=== PATIENT | female | born 1935 ===

== ENCOUNTER 2024-12-01 17:10 | Inpatient (IN) | payer OTHER, MEDICARE ==
[~2024-12-01] VITALS: Ht 157.5 cm; Wt 66.3 kg
[2024-12-01] MEDS ORDERED: ATOR40TA PO (17:37)
[2024-12-01] MEDS ORDERED: AMLO5 PO (17:37)
[2024-12-01] MEDS ORDERED: ASPIR 8181 M1 PO (17:37)
[2024-12-01] MEDS ORDERED: DONE5 PO (17:38)
[2024-12-01] MEDS ORDERED: CITALOPRAM HBR10 MG PO (17:38)
[2024-12-01] MEDS ORDERED: TOPROL XL25 MG PO (17:39)
[2024-12-01] MEDS ORDERED: LISI20 PO (17:39)
[2024-12-01] MEDS ORDERED: FentaNYL Citrate 50 MCG/ML 2 ML Injection IV ONE (17:40)
[2024-12-01] MEDS ORDERED: THERA-D2000 UNIT PO (17:40)
[2024-12-01] MEDS ORDERED: Ketorolac Tromethamine 30mg Vial IV ONE (18:55)
[2024-12-01] MEDS ORDERED: FentaNYL Citrate 50 MCG/ML 2 ML Injection IV PRN (19:50)
[2024-12-01] MEDS ORDERED: NS 1,000 ML IV SCH (19:50)
[2024-12-01] MEDS ORDERED: OxyCODONE 5 mg/Acetamin 325 mg TABLET PO PRN (19:50)
[2024-12-01] MEDS ORDERED: Ondansetron HCl 2 MG / ML 2ML Vial IV PRN (19:50)
[2024-12-01] MEDS ORDERED: Metoclopramide HCl 5MG / ML 2ML Vial IV PRN (19:50)
[2024-12-01 21:22] LABS: Hematocrit 26.2 % (33.0-51.0); Hemoglobin 9.4 g/dL (11.5-16.0); Mean Corpuscular HGB Conc 35.9 g/dL (31.5-36.5); Mean Corpuscular Volume 94 fL (80-100); NRBC ABSOLUTE 0.00 K/mm3 (0.00-0.02); NRBC Auto 0.0 /100 WBC (0.0-0.2); Platelet Count 159 K/mm3 (150-400); RDW Coefficient Variation 13.7 % (11.7-14.2); RDW Standard Deviation 47.4 fL (35.1-46.3)
[2024-12-01 21:29] LABS: Anion Gap 9.0 mmol/L (3-11); Blood Urea Nitrogen 19.0 mg/dL (8-24); CO2, Blood 26.0 mmol/L (21-32); Calcium, Blood 8.5 mg/dL (8.5-10.1); Chloride, Blood 92.0 mmol/L (98-108); Creatinine, Blood 1.02 mg/dL (0.40-1.00); Glucose, Blood 106.0 mg/dL (70-99); Potassium, Blood 4.1 mmol/L (3.5-5.5); Sodium, Blood 123.0 mmol/L (136-145)
[2024-12-01 22:59] VITALS: BP 171/55
--- NOTE | 2024-12-02 07:28 | NUR ---
PT NPO, IVF INFUSING. NEW IV PLACED AND STILL THERE. BELGICA GRIFFIN RN WAS IN WITH PT AND SAID SHE VOIDED. CAUGHT PT TRYING TO GET OUT OF BED. PT WANTING TO GO TO THE BR. THERMOSCREW OPERATOR HELPING HER WITH BP. REPORT TO DALIA BURNS TO ASSUME CARE.
[2024-12-02 08:31] LABS: BASOPHILS ABSOLUTE AUTO 0.05 K/mm3 (0.00-0.23); BASOPHILS PERCENT AUTO 0 % (0-2); EOSINOPHILS ABSOLUTE AUTO 0.28 K/mm3 (0.00-0.68); EOSINOPHILS PERCENT AUTO 2 % (0-6); Hematocrit 26.7 % (33.0-51.0); Hemoglobin 9.4 g/dL (11.5-16.0); IMMATURE GRAN ABSOLUTE AUTO 0.04 K/mm3 (0.00-0.10); IMMATURE GRAN PERCENT AUTO 0 % (0-1); LYMPHOCYTES ABSOLUTE AUTO 1.03 K/mm3 (0.84-5.20); LYMPHOCYTES PERCENT AUTO 7 % (21-46); MONOCYTES ABSOLUTE AUTO 0.44 K/mm3 (0.16-1.47); MONOCYTES PERCENT AUTO 3 % (4-13); Mean Corpuscular HGB Conc 35.2 g/dL (31.5-36.5); Mean Corpuscular Volume 96 fL (80-100); NEUTROPHILS ABSOLUTE AUTO 12.72 K/mm3 (1.96-9.15); NEUTROPHILS PERCENT AUTO 87 % (41-73); NRBC ABSOLUTE 0.00 K/mm3 (0.00-0.02); NRBC Auto 0.0 /100 WBC (0.0-0.2); Platelet Count 147 K/mm3 (150-400); RDW Coefficient Variation 14.0 % (11.7-14.2); RDW Standard Deviation 48.6 fL (35.1-46.3)
[2024-12-02 08:40] VITALS: BP 189/51
[2024-12-02 08:47] LABS: Anion Gap 12.0 mmol/L (3-11); Blood Urea Nitrogen 20.0 mg/dL (8-24); CO2, Blood 23.0 mmol/L (21-32); Calcium, Blood 8.4 mg/dL (8.5-10.1); Chloride, Blood 92.0 mmol/L (98-108); Creatinine, Blood 1.03 mg/dL (0.40-1.00); Glucose, Blood 113.0 mg/dL (70-99); Potassium, Blood 4.1 mmol/L (3.5-5.5); Sodium, Blood 123.0 mmol/L (136-145)
[2024-12-02] MEDS ORDERED: Cholecalciferol 1000 Unit Tablet (=25MCG) PO SCH (09:00)
[2024-12-02] MEDS ORDERED: Morphine Sulfate 4 MG/1 ML Injection IV PRN (10:10)
[2024-12-02 12:13] LABS: Anion Gap 9.0 mmol/L (3-11); Blood Urea Nitrogen 19.0 mg/dL (8-24); CO2, Blood 27.0 mmol/L (21-32); Calcium, Blood 8.3 mg/dL (8.5-10.1); Chloride, Blood 93.0 mmol/L (98-108); Creatinine, Blood 1.03 mg/dL (0.40-1.00); Glucose, Blood 114.0 mg/dL (70-99); Potassium, Blood 4.1 mmol/L (3.5-5.5); Sodium, Blood 125.0 mmol/L (136-145)
[2024-12-02 16:18] LABS: Anion Gap 7.0 mmol/L (3-11); Blood Urea Nitrogen 17.0 mg/dL (8-24); CO2, Blood 27.0 mmol/L (21-32); Calcium, Blood 8.2 mg/dL (8.5-10.1); Chloride, Blood 95.0 mmol/L (98-108); Creatinine, Blood 1.01 mg/dL (0.40-1.00); Glucose, Blood 114.0 mg/dL (70-99); Potassium, Blood 4.2 mmol/L (3.5-5.5); Sodium, Blood 125.0 mmol/L (136-145)
[2024-12-02 16:24] VITALS: BP 164/61
[2024-12-02 18:07] VITALS: BP 160/55
[2024-12-02] MEDS ORDERED: Tranexamic Acid 100 ML IV SCH (18:30)
[2024-12-02] MEDS ORDERED: CeFAZolin Sodium 2,000 MG in NS 100 ML IV SCH (18:30)
[2024-12-03] VITALS (26 sets, daily range): BP systolic 143–204; BP diastolic 45–96
[2024-12-03 05:35] LABS: BASOPHILS ABSOLUTE AUTO 0.04 K/mm3 (0.00-0.23); BASOPHILS PERCENT AUTO 1 % (0-2); EOSINOPHILS ABSOLUTE AUTO 0.36 K/mm3 (0.00-0.68); EOSINOPHILS PERCENT AUTO 5 % (0-6); Hematocrit 24.9 % (33.0-51.0); Hemoglobin 8.6 g/dL (11.5-16.0); IMMATURE GRAN ABSOLUTE AUTO 0.02 K/mm3 (0.00-0.10); IMMATURE GRAN PERCENT AUTO 0 % (0-1); LYMPHOCYTES ABSOLUTE AUTO 0.72 K/mm3 (0.84-5.20); LYMPHOCYTES PERCENT AUTO 9 % (21-46); MONOCYTES ABSOLUTE AUTO 0.40 K/mm3 (0.16-1.47); MONOCYTES PERCENT AUTO 5 % (4-13); Mean Corpuscular HGB Conc 34.5 g/dL (31.5-36.5); Mean Corpuscular Volume 95 fL (80-100); NEUTROPHILS ABSOLUTE AUTO 6.45 K/mm3 (1.96-9.15); NEUTROPHILS PERCENT AUTO 81 % (41-73); NRBC ABSOLUTE 0.00 K/mm3 (0.00-0.02); NRBC Auto 0.0 /100 WBC (0.0-0.2); Platelet Count 122 K/mm3 (150-400); RDW Coefficient Variation 14.4 % (11.7-14.2); RDW Standard Deviation 50.1 fL (35.1-46.3)
[2024-12-03 06:04] LABS: Ferritin, Serum 167.0 ng/mL (8-252); Total Iron Binding Capacity 212.0 ug/dL (250-450)
[2024-12-03 06:05] LABS: Anion Gap 8.0 mmol/L (3-11); Blood Urea Nitrogen 18.0 mg/dL (8-24); CO2, Blood 24.0 mmol/L (21-32); Calcium, Blood 8.0 mg/dL (8.5-10.1); Chloride, Blood 98.0 mmol/L (98-108); Creatinine, Blood 1.05 mg/dL (0.40-1.00); Glucose, Blood 94.0 mg/dL (70-99); Potassium, Blood 4.1 mmol/L (3.5-5.5); Sodium, Blood 126.0 mmol/L (136-145)
--- NOTE | 2024-12-03 06:35 | NUR ---
SHIFT SUMMARY AOX1-SELF & FAMILY ONLY. HX DEMENTIA. HAS TANGETABLE OFF TOPIC SPEECH OR RESPONSES. REPORTS PAIN VIA GRIMACING, SAYING "OW", & HOLDING L HIP. MEDICATED 2x W/1MG IV MORPHINE & PT ABLE TO REST COMFORTABLY. LLE SHORTENED. STRONG PULSE, CAP REFILL <3 SEC. HAS BEEN NPO SINCE 0000 FOR PLANNED ARHTROPLASTY TODAY. BP HAS BEEN HTN, PT REPORTING PAIN WHEN BP TAKEN-WILL REASSESS. CALL LIGHT, BED ALARM IN PLACE & 1:1 SITTER AT BEDSIDE.
[2024-12-03] MEDS ORDERED: Bupivacaine 0.5% W/EPI 1:200000 SDV 30 ML Vial ONE (07:10)
[2024-12-03] MEDS ORDERED: Ketamine HCl 100 MG / ML 5ML Vial ONE (07:20)
[2024-12-03] MEDS ORDERED: FentaNYL Citrate 50 MCG/ML 2 ML Injection ONE (07:20)
[2024-12-03] MEDS ORDERED: Bupivacaine 0.5% HCl 5 MG/ML 30MLVIAL ONE (07:20)
--- NOTE | 2024-12-03 07:25 | NUR ---
pt to or via bed
[2024-12-03] MEDS ORDERED: Ondansetron HCl 2 MG / ML 2ML Vial ONE (08:25)
[2024-12-03] MEDS ORDERED: Dexamethasone Sod Phos 10 MG/ML 1ML VIAL ONE (08:25)
[2024-12-03] MEDS ORDERED: Labetalol HCL 5 MG/ML 4ML Injection (Single Dose) ONE (09:54)
[2024-12-03] MEDS ORDERED: FentaNYL Citrate 50 MCG/ML 2 ML Injection IV PRN ×2 (09:55→10:00)
[2024-12-03] MEDS ORDERED: Dexamethasone Sodium Phosphate 4 MG/ML 5ML VIAL IV PRN (09:55)
[2024-12-03] MEDS ORDERED: Labetalol HCL 5 MG/ML 4ML Injection (Single Dose) IV PRN (09:55)
[2024-12-03] MEDS ORDERED: Ondansetron HCl 2 MG / ML 2ML Vial IV PRN (09:55)
[2024-12-03] MEDS ORDERED: HydrALAZINE HCl 20 MG / ML 1ML Vial IV PRN (10:00)
--- NOTE | 2024-12-03 11:00 | NUR ---
PT TO ROOM 211 FROM PACU. R AC IV BLOODY AND OCCLUDED ON ARRIVAL. DC'D. PT SLEEPY BUT AROUSABLE. AQUACELL DRESSING TO LEFT HIP WITH MILD SEROSANGUINOUS SPOTTING. WILL CONTINUE TO MONITOR. POST OP VS STARTED AND STABLE. PULSES PALPABLE DISTALLY.
[2024-12-03 14:22] LABS: Hematocrit 26.0 % (33.0-51.0); Hemoglobin 8.8 g/dL (11.5-16.0)
[2024-12-03] MEDS ORDERED: CeFAZolin Sodium 2,000 MG in NS 100 ML IV SCH (16:00)
--- NOTE | 2024-12-03 17:42 | NUR ---
SHIFT SUMMARY PT EATING MEAL TRAY. IV INFUSING LEFT ARM. PT REMAINS ORIENTED TO SELF ONLY. SITTER AT BEDSIDE. FAMILY AT BEDSIDE. PT PRESENTLY SITTING UP IN CHAIR.
[2024-12-04 03:49] VITALS: BP 150/43
--- NOTE | 2024-12-04 04:24 | NUR ---
NOC SUMMARY- PT HAS HAD DIFFICULTY SLEEPING. TRAZEDONE WAS ORDERED WITH LITTLE RESULT. PT PAIN MANAGED WELL. PT DRESSING HAS SOME SHADOWING. PT VOIDING VIA COMMODE. PT HAS A SITTER. PT REMAINS VERY CONFUSED. CALL LIGHT IN REACH.
[2024-12-04 07:04] VITALS: BP 156/53
[2024-12-04] MEDS ORDERED: Enoxaparin 30 MG/0.3 ML SYR SC SCH (08:00)
[2024-12-04 08:57] LABS: Hematocrit 21.8 % (33.0-51.0); Hemoglobin 7.7 g/dL (11.5-16.0)
--- NOTE | 2024-12-04 09:02 | NUR ---
phys therapy in to see pt family bedside.
[2024-12-04 09:18] LABS: Anion Gap 9.0 mmol/L (3-11); Blood Urea Nitrogen 20.0 mg/dL (8-24); CO2, Blood 24.0 mmol/L (21-32); Calcium, Blood 8.0 mg/dL (8.5-10.1); Chloride, Blood 101.0 mmol/L (98-108); Creatinine, Blood 1.07 mg/dL (0.40-1.00); Glucose, Blood 119.0 mg/dL (70-99); Potassium, Blood 3.8 mmol/L (3.5-5.5); Sodium, Blood 130.0 mmol/L (136-145)
--- NOTE | 2024-12-04 11:52 | NUR ---
Upon receiving a referral for spiritual care, I visited the patient. Her son Capo is bedside. The patient asks the same questions over and over and so finding out about her is challenging. I answer her questions for quite some time but step out to allow her to rest. I provided therapeutic listening and a calming joyful presence which appeared to have a positive result with the patient.
[2024-12-04 15:20] VITALS: BP 163/108
--- NOTE | 2024-12-04 17:24 | NUR ---
SUMMARY PT HAS NOT SLEPT T/O SHIFT. BECAME VERY AGITATED THIS AFTERNOON, FAMILY BEDSIDE AND REQUESTED XANAX, STATING PT TAKES AT HOME. MEDICATED PER ORDERS. PT STILL AWAKE. FAMILY BEDSIDE. DR GARCIA IN TO SEE PT/FAMILY.
[2024-12-04 21:01] VITALS: BP 116/39
[2024-12-04 21:08] VITALS: BP 115/41
--- NOTE | 2024-12-04 21:12 | NUR ---
TRANSFER OF CARE REPORT GIVEN TO MARÍA BURNS. PT ASLEEP c CONT BIOX IN USE. SITTER AT BEDSIDE. IV FLUIDS INFUSING PER EMAR. AQUACEL c SCANT SHADOWING. BED ALARM IN USE.
--- NOTE | 2024-12-04 21:35 | NUR ---
ASSUMED CARE OF PT FROM [facility] AT THIS TIME.
[2024-12-04 23:43] VITALS: BP 116/56
[2024-12-05] VITALS (8 sets, daily range): BP systolic 120–160; BP diastolic 39–91
--- NOTE | 2024-12-05 00:16 | NUR ---
12/04/24 2330 RN AND DEVELOPMENT CONSULTANT TO ROOM TO REASSESS PT BP/LOC. PT ABLE TO AROUSE TO TOUCH STIMULI BUT IS VERY SLEEPY. 1:1 SITTER AT BEDSIDE FOR SAFETY.
--- NOTE | 2024-12-05 03:22 | NUR ---
0250 CALL FROM SITTER FOR RESTROOM BREAK. RN IN ROOM DURING SITTER BREAK; PT WITH CHANGES TO RESPIRATIONS SINCE ASSESSMENT; CONTINUOUS BIOX IN PLACE AND OXYGEN SATURATIONS REMAIN ABOVE 95% HOWEVER RESPIRATIONS DECREASED AND WHEEZE PRESENT WITH SNORING RESPIRATIONS. PT RESPONDS TO PAINFUL STIMULI BUT WILL NOT OPEN EYES OR SPEAK. PT LEFT HAND IS SOMEWHAT CONTRACTED AND PER PHLEBOTOMY LAB ASSISTANT, THIS WAS NOT PT BASELINE YESTERDAY NOC SHIFT. BED WAS CHANGED DUE TO INCONTINENT STOOL AND URINE EPISODE AND DURING THE LINEN CHANGE, PT DID NOT VERBALIZE WORDS BUT DID MAKE NOISE AND TIGHTENED HAND BLANKBOOK FORWARDER AROUND RN HANDS WHEN RN WAS MOVING PT ARM. PT CONTINUES TO NOT SPEAK TO US WHEN ASKING QUESTIONS. PT IS HARD OF HEARING AT BASELINE. PHLEBOTOMY LAB ASSISTANT AND THIS RN ATTEMPTED TO OPEN PT EYES AND PT SQUEEZES THEM CLOSED AND WILL NOT ALLOW US TO OPEN THEM, NOR DOES SHE OPEN THEM TO US. CALL PLACED TO HOSPITALIST AND ORDERS GIVEN FOR [facility].
[2024-12-05 04:30] LABS: pH Blood Venous 7.36 (7.34-7.37)
[2024-12-05 04:31] LABS: Hematocrit 19.2 % (33.0-51.0); Hemoglobin 6.4 g/dL (11.5-16.0)
--- NOTE | 2024-12-05 05:08 | NUR ---
0504 CALL TO PROVIDER WHEN LAB RESULTS AVAILABLE. ORDERS RECEIVED FOR 1 UNIT PRBC ONE TIME.
[2024-12-05] MEDS ORDERED: NS 500 ML IV SCH (05:10)
--- NOTE | 2024-12-05 07:20 | NUR ---
CALL PLACED TO PT DAUGHTER YASMEEN TO DISCUSS STATUS LETHARGY AND DECREASED HEMOGLOBIN WITH NEED FOR BLOOD TRANSFUSION. DAUGHTER APPRECIATIVE OF PHONE CALL AND UPDATE.
[2024-12-05] MEDS ORDERED: Enoxaparin 40 MG/0.4 ML SYR SC SCH (09:00)
--- NOTE | 2024-12-05 09:46 | NUR ---
Pt. is somnolent and not responsive. Family are present and welcome my visit. Facilitate a life review and established a measure of rapport based upon common life experience in [place]. SonCapo is engaging as is Pts. daja Negrete. Consider matters of deni and belief and educated the family on the process for calling a department coordinator. Family verbalized interest in when Mass services take place at the hospital. Prayed with the family. Family verbalized gratitude for the spiritual care visit, and welcomed this quill worker to return.
[2024-12-05 12:30] LABS: Anion Gap 17.0 mmol/L (3-11); Blood Urea Nitrogen 32.0 mg/dL (8-24); CO2, Blood 20.0 mmol/L (21-32); Calcium, Blood 8.2 mg/dL (8.5-10.1); Chloride, Blood 103.0 mmol/L (98-108); Creatinine, Blood 1.36 mg/dL (0.40-1.00); Glucose, Blood 101.0 mg/dL (70-99); Potassium, Blood 4.5 mmol/L (3.5-5.5); Sodium, Blood 135.0 mmol/L (136-145)
[2024-12-05 13:42] LABS: Hematocrit 23.8 % (33.0-51.0); Hemoglobin 7.9 g/dL (11.5-16.0)
[2024-12-05 13:57] LABS: Source, Urine Straight Cath
[2024-12-05 14:01] LABS: Bilirubin, Urine Neg (Neg); Color, Urine Yellow (P-Yellow); Glucose Qualitative, Urine Neg (Neg); Ketones, Urine Neg (Neg); Leukocyte Esterase, Urine Neg (Neg); Protein, Urine 3+ (Neg); Specific Gravity, Urine 1.020 (1.003-1.022); Urobilinogen, Urine NORM (Normal)
--- NOTE | 2024-12-05 17:10 | NUR ---
SUMMARY PT HAS BEEN SOMNOLENT T/O MOST OF SHIFT. OPENED EYES BRIEFLY THIS AM AND SUPERVISOR RECEIVING AND PROCESSING REPORTED OPENED EYES BRIEFLY THIS AFTERNOON WITH VS. OTHERWISE HAS SLEPT MOST OF DAY, NOT RESPONDED. PT NEEDED TO BE STRAIGHT CATH'D THIS AFTERNOON DUE TO BS OF 361. PT WAS VERY STIFF, TRYING TO COVER SELF AND HOLD LEGS TOGETHER, WHILE REPEATEDLY SAYING "POR FAVOR" WHILE CATH WAS PERFORMED. CATH EMPTIED BLADDER OF 400 ML DARK YELLOW URINE. UA SENT. PT'S HGB THIS AM WAS 6.4. REC'D 1 UNIT PRBCS, TOLERATED WELL. HGB POST TRANSFUSION WAS 7.9. FAMILY HAS BEEN BEDSIDE T/O DAY. REPOSITIONED T/O DAY. CALL LIGHT IN REACH. BED ALARM ON FOR SAFETY.
[2024-12-06 04:35] VITALS: BP 187/53
[2024-12-06 05:33] LABS: Hematocrit 22.6 % (33.0-51.0); Hemoglobin 7.6 g/dL (11.5-16.0)
--- NOTE | 2024-12-06 05:37 | NUR ---
PT WOKE UP DURING SHIFT CHANGE. CONT TO BE CONFUSED BUT COOPERATIVE WITH CARE. BLACK TOP ROLLER AND ANOTHER RN GOT PT UP TO BSC AND PT VOIDED. IT WAS MAX 2 PERSON ASSIST TO GET HER UP. PT DENIES PAIN OR NEED OF PAIN MEDICATION. DRSG WITH SMALL AMT OLD DRAINAGE UNDER TAPE. MEDICATED PER EMAR. IVF INFUSING T/O NOC. SITE CLEAR. PT RESTED WELL T/O NOC. NO ACUTE CHANGES. WILL GIVE REPORT TO RN TAKING PT.
[2024-12-06 06:16] LABS: Anion Gap 7.0 mmol/L (3-11); Blood Urea Nitrogen 25.0 mg/dL (8-24); CO2, Blood 23.0 mmol/L (21-32); Calcium, Blood 8.0 mg/dL (8.5-10.1); Chloride, Blood 108.0 mmol/L (98-108); Creatinine, Blood 1.11 mg/dL (0.40-1.00); Glucose, Blood 77.0 mg/dL (70-99); Potassium, Blood 4.2 mmol/L (3.5-5.5); Sodium, Blood 134.0 mmol/L (136-145)
[2024-12-06 07:58] VITALS: BP 160/87
[2024-12-06] MEDS ORDERED: Enoxaparin 40 MG/0.4 ML SYR SC SCH (09:00)
[2024-12-06] MEDS ORDERED: Enoxaparin 30 MG/0.3 ML SYR SC SCH (09:00)
[2024-12-06 14:21] VITALS: BP 170/51
--- NOTE | 2024-12-06 16:32 | NUR ---
SHIFT SUMMARY PATIENT IS AOX2. ABLE TO AMBULATE TO CHAIR AND BSC, WITH 2 PERSON ASSIST. BED AND CHAIR ALARMS IN PLACE. AQUACEL TO LEFT HIP HAS SOME S/S DRNG. DRESSING IS INTACT. PATIENT UP IN CHAIR T/O DAY WITH FAMILY IN ROOM. PARTICIPATES IN PT AND OT. VOIDING, BM AND TOLERATING PO INTAKE. DENIES PAIN.
--- NOTE | 2024-12-06 18:01 | NUR ---
UPDATE PATIENT HAVING MORE CONFUSION THIS EVENING. NOT ABLE TO REDIRECT PATIENT. PATIENT INSISTS ON GETTING UP AND OUT OF THE ROOM TO GO HOME. FAMILY AT BEDSIDE TRYING TO REDIRECT. PATIENT USES BSC VOIDS AND IS NOW IN CHAIR TO EAT DINNER. CHAIR ALARM IS ON.
[2024-12-06 19:51] VITALS: BP 176/55
--- NOTE | 2024-12-06 22:09 | NUR ---
PT'S DAUGHTER CALLED TO CHECK ON HER. I LET HER KNOW THAT WE HAVE A SITTER THAT CAME IN TO SIT WITH HER. PT TOOK HER MEDICATIONS WHOLE WITH WATER.
[2024-12-07 04:44] VITALS: BP 192/60
[2024-12-07 04:57] LABS: Anion Gap 7.0 mmol/L (3-11); Blood Urea Nitrogen 25.0 mg/dL (8-24); CO2, Blood 25.0 mmol/L (21-32); Calcium, Blood 8.2 mg/dL (8.5-10.1); Chloride, Blood 108.0 mmol/L (98-108); Creatinine, Blood 1.13 mg/dL (0.40-1.00); Glucose, Blood 121.0 mg/dL (70-99); Potassium, Blood 3.7 mmol/L (3.5-5.5); Sodium, Blood 136.0 mmol/L (136-145)
[2024-12-07 05:14] VITALS: BP 179/52
[2024-12-07 07:15] LABS: Hematocrit 25.8 % (33.0-51.0); Hemoglobin 8.8 g/dL (11.5-16.0)
[2024-12-07 07:22] VITALS: BP 176/53
[2024-12-07 07:23] VITALS: BP 180/54
[2024-12-07 10:30] VITALS: BP 165/44
[2024-12-07] MEDS ORDERED: ALPR.25 PO (14:04)
[2024-12-07] MEDS ORDERED: FERSU300 PO (14:05)
[2024-12-07] MEDS ORDERED: QUET25 PO (14:06)
[2024-12-07 14:13] VITALS: BP 154/50
--- NOTE | 2024-12-07 14:40 | NUR ---
Spiritual Care Visit. Pt. is sitting up and resting in a recliner. Family are at bedside and welcome my visit. During the visit the Pt. awakened. Pt. displayed some confusion but is overall very pleasant. Facilitated life review and considered the joys and challengines of aging parents. Prayed with the Pt. Shashiy verbalized gratitude for the spiritual care visit as well as their expectation for a discharge home for the Pt. soon.
--- NOTE | 2024-12-07 16:06 | NUR ---
DISCHARGE POD 4 L MARLON HIP PT WORKED WELL WITH THERAPY. DRESSING REMAINED CDI. NO PAIN DURING SHIFT. ALL INSTRUCTIONS GONE OVER WITH FAMILY AT BEDSIDE. ALL EQUIPMENT DELIVERED PRIOR TO DISCHARGE. PRESCRIPTIONS SENT TO [facility]. ESCORTED OUT VIA HOME WHEELCHAIR.
== END 2024-12-07 16:03 | disposition home or self-care (01) | DRG 522 ==
LOC: ER 17:10 → SURS 19:47
PROVIDERS: Internal Medicine; Nurse Practitioner Acute Care; Orthopaedic Surgery Sports Medicine; Student in an Organized Health Care Education/Training Program; ADMIT Internal Medicine
PROC: 0SRS0JZ Replacement of Left Hip Joint, Femoral Surface with Synthetic Substitute, Open Approach (ICD-10-PCS; principal; 2024-12-03 07:00)
DX: S72.002A Fracture of unspecified part of neck of left femur, initial encounter for closed fracture (principal); E87.1 Hypo-osmolality and hyponatremia; N17.9 Acute kidney failure, unspecified; E78.5 Hyperlipidemia, unspecified; G30.9 Alzheimer's disease, unspecified; F02.80 Dementia in other diseases classified elsewhere, unspecified severity, without behavioral disturbance, psychotic disturbance, mood disturbance, and anxiety; Z66 Do not resuscitate; D63.1 Anemia in chronic kidney disease; I12.9 Hypertensive chronic kidney disease with stage 1 through stage 4 chronic kidney disease, or unspecified chronic kidney disease; R33.8 Other retention of urine; F01.50 Vascular dementia, unspecified severity, without behavioral disturbance, psychotic disturbance, mood disturbance, and anxiety; R41.82 Altered mental status, unspecified; N18.31 Chronic kidney disease, stage 3a; Z79.82 Long term (current) use of aspirin; Z79.899 Other long term (current) drug therapy; W01.0XXA Fall on same level from slipping, tripping and stumbling without subsequent striking against object, initial encounter
CPT/HCPCS: 36415; 36430; 70450; 72125; 73502; 80048; 81001; 82728; 82803; 83540; 83550; 85014; 85018; 85025; 85027; 86850; 86900; 86901; 86923; 94762; 96374; 96376; 97110-CQ; 97112; 97116; 97161; 97165; 97530; 97530-CQ; 97535; 99285-25; A6590; A9270; J0690; J1100; J1650; J1885; J2270; J2405; J2704; J3010; J7030; J7040; P9016